=== PATIENT | female | born 1990 | race Caucasian/White ===

== ENCOUNTER 2024-07-15 04:17 | Emergency (ER) | payer MEDICAID ==
[~2024-07-15] VITALS: Ht 160 cm; Wt 63.5 kg
[2024-07-15 04:24] VITALS: BP 97/65; PULSE 102; RESP 16; TEMP 99.4; O2SAT 100
[2024-07-15 04:35] VITALS: BP 97/65; PULSE 102; RESP 16; TEMP 99.4
[2024-07-15 04:43] VITALS: O2SAT 100
[2024-07-15 05:47] LABS: BASOPHILS # (AUTO) 0.1 K/uL (0.00-0.22); BASOPHILS % (AUTO) 0.3 % (0.0-2.0); EOSINOPHILS % (AUTO) 0.2 % (0.0-4.0); HEMATOCRIT 39.6 % (36-48); HEMOGLOBIN 13.1 g/dL (12.0-16.0); LYMPHOCYTES # (AUTO) 1.5 K/uL (2.5-16.5); LYMPHOCYTES % (AUTO) 6.8 % (20.5-51.1); MEAN CORPUSCULAR HEMOGLOBIN 30 pg (27-31); MEAN CORPUSCULAR HGB CONC 33 g/dL (33-37); MONOCYTES # (AUTO) 1.4 K/uL (0.8-1.0); MONOCYTES % (AUTO) 6.3 % (1.7-9.3); NEUTROPHILS # (AUTO) 19.4 K/uL (1.8-7.7); NEUTROPHILS % (AUTO) 86.4 % (42.2-75.2); PLATELET COUNT (AUTO) 333 K/uL (140-450); RED CELL DISTRIBUTION WIDTH 12.9 % (11.6-13.7); WHITE BLOOD COUNT (AUTO) 22.5 K/uL (4.8-10.8)
[2024-07-15 06:07] LABS: ALBUMIN 3.7 g/dL (3.4-5.0); ANION GAP 10.1 (8-16); CALCIUM 9.2 mg/dL (8.5-10.1); CARBON DIOXIDE 32.7 mmol/L (21-32); POTASSIUM 3.8 mmol/L (3.5-5.1); TOTAL BILIRUBIN 0.8 mg/dL (0.0-1.0); TOTAL PROTEIN, SERUM 7.9 g/dL (6.4-8.2)
[2024-07-15] MEDS: KETOROLAC 30 MG/ML VIAL IM ONE (06:44)
[2024-07-15 07:08] LABS: BILIRUBIN,URINE NEGATIVE (NEGATIVE); BLOOD, URINE 3+ (NEGATIVE); COLOR,URINE YELLOW (YELLOW); LEUKOCYTE ESTERASE ,URINE NEGATIVE (NEGATIVE); PROTEIN,URINE NEGATIVE (NEGATIVE); UGLUCOSE NEGATIVE (NEGATIVE); UROBILINOGEN,URINE 0.2 EU/dL (0.2 - 1)
[2024-07-15 07:26] LABS: APPEARANCE,URINE SLIGHTLY HAZY (CLEAR)
[2024-07-15 07:28] LABS: BACTERIA,URINE 1+ /HPF (None Seen); SQUAMOUS EPITHELIAL CELL,UR 0-3 (FEW) /LPF (0-3 (FEW)); WBC,URINE 0-5 /HPF (0-5)
[2024-07-15 07:30] LABS: NITRITE, URINE POSITIVE (NEGATIVE); RBC,URINE 11-20 (MOD) /HPF (0-5)
[2024-07-15] MEDS ORDERED: FAMO-92 PO (07:45)
[2024-07-15] MEDS ORDERED: [UNRECOGNIZED DRUG - CODE] PO (07:45)
[2024-07-15] MEDS ORDERED: NITR100C7 PO (07:52)
== END 2024-07-15 08:08 | disposition home or self-care (01) ==
LOC: MED 04:17
DX: D72.829 Elevated white blood cell count, unspecified (principal); R10.13 Epigastric pain; R11.2 Nausea with vomiting, unspecified; Z79.899 Other long term (current) drug therapy
CPT/HCPCS: 36415; 76705; 80053; 81001; 81025; 83690; 85025; 87086; 96372; 99285; J1885; Q0092